=== PATIENT | male | born 1985 | race African-American/Black ===

== ENCOUNTER 2017-03-27 06:14 | Emergency (ER) | payer MEDICAID ==
[~2017-03-27] VITALS: Ht 177.8 cm; Wt 79.4 kg
[2017-03-27 06:21] VITALS: BP 137/90
--- NOTE | 2017-03-27 06:28 | NUR ---
PATIENT AMBULATED TO ER BED 5.
--- NOTE | 2017-03-27 06:32 | NUR ---
PATIENT PRESENTS TO ED WITH LAC TO LEFT CORREIA OF LEG . PT STATES HE WAS GETTING OFF WORK WHEN HE SLIPPED AND LANDED ON SCRAP METAL . DENIES N/V/D; AAOX4 WITH EVEN AND STEADY GAIT; LUNGS CLEAR BL; HR EVEN AND REGULAR; PT DENIES ANY FEVER, CP, SOB, OR COUGH AT THIS TIME; PATIENT STATES PAIN OF 7/10 AT THIS TIME; VSS; PATIENT POSITIONED FOR COMFORT; HOB ELEVATED; BEDRAILS UP X2; BED DOWN. ER MD MADE AWARE OF PT STATUS.
[2017-03-27] MEDS ORDERED: KETOROLAC 60 MG/2 ML VIAL IM ONE (06:45)
--- NOTE | 2017-03-27 07:08 | NUR ---
Pt report given to TWILA WELCH. Transfer of care at this time.
--- NOTE | 2017-03-27 07:29 | NUR ---
AKANKSHA ROBERTSON AT BEDSIDE FOR LACERATION REPAIR.
[2017-03-27] MEDS ORDERED: LIDOCAINE 1% ED 50 ML ONE (07:35)
[2017-03-27 08:00] VITALS: BP 140/87
--- NOTE | 2017-03-27 08:00 | NUR ---
Patient discharged with v/s stable. Written and verbal after care instructions given and explained. Patient alert, oriented and verbalized understanding of instructions. Ambulatory with steady gait. All questions addressed prior to discharge. ID band removed. Patient advised to follow up with PMD. Rx of MOTRIN 600MG & KEFLEX 500MG given. Patient educated on indication of medication including possible reaction and side effects. Opportunity to ask questions provided and answered.
== END 2017-03-27 08:00 | disposition home or self-care (01) ==
LOC: MED 06:14
DX: S81.812A Laceration without foreign body, left lower leg, initial encounter (principal); W01.0XXA Fall on same level from slipping, tripping and stumbling without subsequent striking against object, initial encounter; Y93.01 Activity, walking, marching and hiking; Y92.89 Other specified places as the place of occurrence of the external cause; Y99.8 Other external cause status
CPT/HCPCS: 12032; 73590; 90471; 90715; 96372; 99284; J1885; J2001; Q0092

== ENCOUNTER 2017-03-29 18:25 | Emergency (ER) | payer MEDICAID ==
[~2017-03-29] VITALS: Ht 177.8 cm; Wt 79.4 kg
[2017-03-29 18:43] VITALS: BP 168/91
--- NOTE | 2017-03-29 21:07 | NUR ---
31 Y/O M ACCOMPANIED BY FAMILY FOR F/U WOUND TO L LOWER LEG. DENIES ANY FEVER OR CHILLS. INCISION APPEARS CLOSED, NO S/S OF INFECTION NOTED. ER MADEA AWARE.
--- NOTE | 2017-03-29 21:07 | NUR ---
PT TAKEN TO BED 3
--- NOTE | 2017-03-29 21:25 | NUR ---
Dr. Waldrop evaluating patient at bedside.
[2017-03-29 21:42] VITALS: BP 120/73
--- NOTE | 2017-03-29 21:42 | NUR ---
Patient discharged with v/s stable. Written and verbal after care instructions given and explained. Patient verbalized understanding. Ambulatory with CRUTCHES WITH steady gait. All questions addressed prior to discharge. Advised to follow up with PMD OR RETURN IF CONDITION WORSENS.
== END 2017-03-29 21:42 | disposition home or self-care (01) ==
LOC: MED 18:25
DX: S81.812D Laceration without foreign body, left lower leg, subsequent encounter (principal); X58.XXXA Exposure to other specified factors, initial encounter; R03.0 Elevated blood-pressure reading, without diagnosis of hypertension